=== PATIENT | female | born 1970 | race Hispanic/Latino ===

== ENCOUNTER 2017-10-29 19:17 | Emergency (ER) | payer BC ==
[2017-10-29 19:35] VITALS: BP 134/73; PULSE 89; RESP 16; TEMP 98; O2SAT 97
--- NOTE | 2017-10-29 20:22 | ED PDOC ---
HPI: General Adult Time Seen by Provider: 10/29/17 20:05 Chief Complaint (Nursing): Foreign Body Chief Complaint (Provider): FB sensation in throat History Per: Patient History/Exam Limitations: no limitations Onset/Duration Of Symptoms: Hrs Current Symptoms Are (Timing): Still Present Additional History Per: Patient Additional Complaint(s): 47 y/o female history of hypocalcemia, hyperthyroidism presents with foreign body sensation in throat x 2 hours. Patient states she ate chicken soup last night and states around 18:00 tonight she started gagging and felt something move from the back of her nasal passage in to the upper left side of her throat. Denies fever, vomiting, difficulty speaking/swallowing, chest pain, shortness of breath, abdominal pain. Past Medical History Reviewed: Historical Data, Nursing Documentation, Vital Signs Vital Signs: Last Vital Signs Temp 98.0 F 10/29/17 19:32 Pulse 89 10/29/17 19:32 Resp 16 10/29/17 19:32 BP 134/73 10/29/17 19:32 Pulse Ox 97 10/29/17 22:11 - Medical History PMH: Hyperthyroidism - Surgical History Other surgeries: total thyroidectomy - Family History Family History: States: No Known Family Hx - Allergies Allergies/Adverse Reactions: Allergies Allergy/AdvReac Type Severity Reaction Status Date / Time No Known Allergies Allergy Verified 10/29/17 19:31 Review of Systems ROS Statement: Except As Marked, All Systems Reviewed And Found Negative ENT: Positive for: Throat Pain Physical Exam - Reviewed Nursing Documentation Reviewed: Yes Vital Signs Reviewed: Yes - Physical Exam Appears: Positive for: Well, Non-toxic, No Acute Distress Head Exam: Positive for: ATRAUMATIC, NORMAL INSPECTION, NORMOCEPHALIC Skin: Positive for: Normal Color Eye Exam: Positive for: Normal appearance ENT: Positive for: Normal ENT Inspection Cardiovascular/Chest: Positive for: Regular Rate, Rhythm Respiratory: Positive for: Normal Breath Sounds Gastrointestinal/Abdominal: Positive for: Normal Exam Back: Positive for: Normal Inspection Extremity: Positive for: Normal ROM Neurologic/Psych: Positive for: Alert, Oriented - ECG O2 Sat by Pulse Oximetry: 97 - Progress ED Course And Treament: CT ST neck EXAM: CT Neck Without Intravenous Contrast EXAM DATE/TIME: 10/29/2017 CLINICAL HISTORY: Signs and symptoms; Other: R/O f. B. ; Prior surgery; Surgery type: Thyroidectomy; Additional info: R/O fb, sensation chicken bone in throat. Sent phy. Doc. TECHNIQUE: Axial computed tomography images of the neck without intravenous contrast. All CT scans at this facility use one or more dose reduction techniques, viz.: automated exposure control; ma/kV adjustment per patient size (including targeted exams where dose is matched to indication; i.e. head); or iterative reconstruction technique. Coronal and sagittal reformatted images were created and reviewed. COMPARISON: No relevant comparison exam is available at the time of interpretation. FINDINGS: Limitations: Streak artifact from dental fillings degrades images of the oral cavity and oropharynx. Nasopharynx: No acute findings. Oropharynx: Several small calcifications in both palatine tonsils. A 2 x 3 mm calcification with surrounding soft tissue attenuation in the mid left pharynx (series 2, image 40 ) appears to be contained within the left tonsillar pillar. Hypopharynx: No acute findings. No radiopaque foreign body is identified. Larynx: No acute findings. No epiglottic thickening. Trachea: Narrowing of the airway at the level of the glottis is likely secondary to phonation or breathholding during image acquisition. The airway is otherwise widely patent. Retropharyngeal space: No acute findings. Submandibular/parotid glands: No acute findings. Thyroid: Status post thyroidectomy. Bones/joints: Mild multilevel degenerative changes of the imaged spine. Mild reversal of the normal cervical lordosis. Soft tissues: No radiopaque foreign body is identified. Vasculature: No acute findings. Lymph nodes: No acute findings. Lung apices: Minimal biapical paraseptal emphysema. No pleural fluid collection or pneumothorax in the imaged portion of the thorax. IMPRESSION: 1. No evident acute abnormality. No chicken bone or other foreign body is identified. 2. Mild multilevel degenerative changes of the imaged spine. Mild reversal of the normal cervical lordosis is likely secondary to patient positioning and/or muscle spasm. 3. Additional non-acute findings as described above. Patient educated on findings, discharged with instructions on supportive care. ENT given for follow up for persistent symptoms. Return ot ED for worsening/concerning symptoms. Disposition - Clinical Impression Clinical Impression: Foreign body sensation in throat - Patient ED Disposition Is Patient to be Admitted: No Counseled Patient/Family Regarding: Studies Performed, Diagnosis, Need For Followup - Disposition Referrals: Renzo Beatty MD [Staff Provider] - Disposition: Routine/Home Disposition Time: 22:46 Condition: GOOD Forms: [employer] (Israeli)
--- NOTE | 2017-10-30 12:34 | CT ---
PROCEDURE: CT NECK WITHOUT CONTRAST HISTORY: Foreign body suspected, sensation chicken bone in throat Relevant surgical history: Prior thyroidectomy. COMPARISON: None. TECHNIQUE: CT of the neck without intravenous contrast. Coronal and sagittal reformats generated. Radiation dose: DLP mGy-cm This CT exam was performed using one or more of the following dose reduction techniques: Automated exposure control, adjustment of the mA and/or kV according to patient size, and/or use of iterative reconstruction technique. FINDINGS: NASOPHARYNX: Unremarkable. SUPRAHYOID NECK: Unremarkable oropharynx, oral cavity, parapharyngeal space and retropharyngeal space. Incidental finding(s): Benign-appearing calcifications within the palate seen tonsil on the left. Small punctate calcifications also identified in the right tonsil and vallecular region. INFRAHYOID NECK: Unremarkable larynx, hypopharynx, and supraglottic space. Vocal cords intact. MASS: None. GLANDS: Parotid and submandibular glands unremarkable. Normal size thyroid gland, without nodule. LYMPH NODES: Normal. No lymphadenopathy. CERVICAL SPINE: No fracture or focal lesion. OTHER FINDINGS: None. IMPRESSION: No visulaized radiopaque/visualized foreign body. Additional benign and/or incidental findings described above. Concordant results (preliminary interpretation) provided by [facility]. Procedure Completed: 21:29 Preliminary ([facility]) Report: Dictated and Authenticated: 22:07 Final Interpretation: 12:32 2017.
== END 2017-10-29 23:00 | disposition home or self-care (01) ==
LOC: H.ER 19:17
DX: R09.89 Other specified symptoms and signs involving the circulatory and respiratory systems (principal)

== ENCOUNTER 2019-02-03 17:38 | Emergency (ER) | payer BC ==
[2019-02-03 18:57] VITALS: BP 126/81; PULSE 84; RESP 16; TEMP 98.5; O2SAT 98
--- NOTE | 2019-02-03 21:32 | ED PDOC ---
HPI: General Adult Time Seen by Provider: 02/03/19 19:38 Chief Complaint (Nursing): Back Pain Chief Complaint (Provider): Right flank pain History Per: Patient History/Exam Limitations: no limitations Onset/Duration Of Symptoms: Days (5) Have you had recent travel within the past 21 days to any of the following countries: [place], [place], [place] or [place]?: No Current Symptoms Are (Timing): Still Present Additional History Per: Patient Additional Complaint(s): 49yo female with history of Grave's disease, hypocalcemia, currently s/p thyroidectomy and parathyroidectomy, comes to ER reporting right flank pain x 5 days. She also reports 2 episodes of loose bowel movements, one yesterday and one today, both non-bloody. Patient states she has history of renal stones but they were incidental findings. She denies any fever, chills, hematuria, dysuria, nausea, vomiting. She also reports normal appetite and normal PO intake. No additional complaints. Past Medical History Reviewed: Historical Data, Nursing Documentation, Vital Signs Vital Signs: Last Vital Signs Temp 98.5 F 02/03/19 18:54 Pulse 84 02/03/19 18:54 Resp 16 02/03/19 18:54 BP 126/81 02/03/19 18:54 Pulse Ox 98 02/03/19 18:54 Primary Care Provider: FAMILY PROVIDER,NO - Medical History PMH: Graves' Disease, Hyperthyroidism, Kidney Stones - Surgical History Other surgeries: thyroidectomy, parathyroidectomy - Family History Family History: States: Other Other Family History: Diverticular Disease (Mother) - Allergies Allergies/Adverse Reactions: Allergies Allergy/AdvReac Type Severity Reaction Status Date / Time No Known Allergies Allergy Verified 02/03/19 18:54 Review of Systems ROS Statement: Except As Marked, All Systems Reviewed And Found Negative Constitutional: Negative for: Fever, Chills Gastrointestinal: Positive for: Diarrhea (2x loose bowel movements) Genitourinary Female: Negative for: Dysuria, Frequency, Hematuria Musculoskeletal: Positive for: Other (right flank pain) Neurological: Negative for: Weakness, Numbness Physical Exam - Reviewed Nursing Documentation Reviewed: Yes Vital Signs Reviewed: Yes - Physical Exam Appears: Positive for: Non-toxic, No Acute Distress Head Exam: Positive for: ATRAUMATIC, NORMAL INSPECTION, NORMOCEPHALIC Skin: Positive for: Normal Color Eye Exam: Positive for: Normal appearance, EOMI, PERRL Neck: Positive for: Normal (well healed thyroidectomy scar), Painless ROM, Supple Cardiovascular/Chest: Positive for: Regular Rate, Rhythm. Negative for: Tachycardia Respiratory: Positive for: Normal Breath Sounds. Negative for: Respiratory Distress Gastrointestinal/Abdominal: Positive for: Normal Exam, Soft. Negative for: Tenderness Back: Positive for: Normal Inspection. Negative for: R CVA Tenderness, Muscle Spasm Extremity: Positive for: Normal ROM. Negative for: Pedal Edema, Deformity Neurological/Psych: Positive for: Awake, Alert, Normal Tone - Laboratory Results Result Diagrams: 02/03/19 21:40 02/03/19 21:40 - ECG O2 Sat by Pulse Oximetry: 98 (RA) Pulse Ox Interpretation: Normal Medical Decision Making Medical Decision Making: Impression: 49yo female with right flank pain Plan: -- Labs -- US Renal -- Urinalysis -- IV fluids Patient declines pain medications at this time. 2203 US Renal FINDINGS: RIGHT KIDNEY: Unremarkable. 9.4 cm. Normal in size and contour. No renal mass or calculus. No hydronephrosis. LEFT KIDNEY: Unremarkable. 9.2 cm Normal in size and contour. No renal mass or calculus. No hydronephrosis. MISCELLANEOUS: No other significant abnormality evident. IMPRESSION: No acute abnormality evident. No hydronephrosis. Scribe Attestation: Documented by Marii Dye acting as a scribe for Anup Beck MD. Provider Scribe Attestation: All medical record entries made by the Scribe were at my direction and personally dictated by me. I have reviewed the chart and agree that the record accurately reflects my personal performance of the history, physical exam, medical decision making, and the department course for this patient. I have also personally directed, reviewed, and agree with the discharge instructions and disposition. Time: 2345 -- Labs demonstrate no significantly clinical abnormalities with the exception o f low TCH. Patient was informed of all results and will follow up with local internal medicine physician for complete thyroid testing. Patient is stable for discharge home with a diagnosis of flank pain. -- Patient provided prescription of Lidoderm patch and advised to use Ibuprofen for symptom relief. Scribe Attestation: Documented by Sylvester Goyal, acting as a scribe for Anup Bcek MD. Provider Scribe Attestation: All medical record entries made by the Scribe were at my direction and personally dictated by me. I have reviewed the chart and agree that the record accurately reflects my personal performance of the history, physical exam, medical decision making, and the department course for this patient. I have also personally directed, reviewed, and agree with the discharge instructions and disposition. Disposition - Clinical Impression Clinical Impression: Flank pain - Patient ED Disposition Is Patient to be Admitted: No Counseled Patient/Family Regarding: Studies Performed, Diagnosis, Need For Followup - Disposition Referrals: Humberto Pritchard MD [Staff Provider] - Disposition: Routine/Home Disposition Time: 23:45 Condition: STABLE Instructions: Flank Pain (DC) Forms: [employer] (Serbian)
[2019-02-03 21:57] LABS: SQUAMOUS EPITHIAL 5 /hpf (0-5); URINE BACTERIA RARE (<OCC); URINE BILIRUBIN NEGATIVE (NEGATIVE); URINE BLOOD TRACE (NEGATIVE); URINE CLARITY CLOUDY (Clear); URINE COLOR YELLOW (YELLOW); URINE GLUCOSE (UA) NEG (NEGATIVE); URINE LEUKOCYTE ESTERASE NEG Leu/uL (Negative); URINE PROTEIN NEGATIVE (NEGATIVE); URINE UROBILINOGEN 0.2-1.0 mg/dL (0.2-1.0)
[2019-02-03] MEDS: Sodium Chloride 0.9% 1,000 ML IV STA (22:12)
[2019-02-03 22:29] LABS: BASO # 0.1 K/uL (0.0-0.2); BASO % 1.1 % (0.0-2.0); EOS # 0.5 K/uL (0.0-0.7); EOS % 5.5 % (0.0-4.0); HEMOGLOBIN 14.6 g/dL (12.0-16.0); LYMPH % 23.8 % (20.0-40.0); MEAN CELL VOLUME 97.2 fl (81.0-99.0); MEAN CORPUSCULAR HEMOGLOBIN 32.8 pg (27.0-31.0); MEAN CORPUSCULAR HGB CONC 33.7 g/dL (33.0-37.0); MONO # 0.6 K/uL (0.0-0.8); MONO % 6.8 % (0.0-10.0); NEUT # 5.3 K/uL (1.8-7.0); NEUT % 62.8 % (50.0-75.0); RBC 4.45 Mil/uL (3.80-5.20); RED CELL DISTRIBUTION WIDTH 13.6 % (11.5-14.5); WHITE BLOOD COUNT 8.4 K/uL (4.8-10.8)
[2019-02-03 22:36] LABS: ALB/GLOB RATIO 1.3 (1.0-2.1); ALBUMIN 4.5 g/dL (3.5-5.0); ALT/SGPT 21 U/L (9-52); AST/SGOT 28 U/L (14-36); BLOOD UREA NITROGEN 28 mg/dl (7-17); GFR NON-AFRICAN AMERICAN 53; LIPASE 134 U/L (23-300)
--- NOTE | 2019-02-04 12:22 | US ---
Date of service: 02/03/2019 PROCEDURE: Ultrasound of the Kidneys HISTORY: right flank COMPARISON: None available. TECHNIQUE: Sonogram of the kidneys. FINDINGS: RIGHT KIDNEY: Measures: 3.5 x 9.2 cm. Normal in size, contour and echogenicity. No stone, solid mass lesion or hydronephrosis visualized. LEFT KIDNEY: Measures: 4.6 x 9.2 cm. Normal in size, contour and echogenicity. No stone, solid mass lesion or hydronephrosis visualized. OTHER FINDINGS: None. IMPRESSION: Unremarkable renal sonogram. Concordant findings (preliminary report) provided by [facility].
== END 2019-02-04 03:00 | disposition home or self-care (01) ==
LOC: H.ER 17:38
DX: R10.9 Unspecified abdominal pain (principal)
CPT/HCPCS: 76770; 80053; 81003; 83690; 83735; 84443; 85025; 96360; 99283; J7030